=== PATIENT | male | born 1990 | race Hispanic/Latino ===

== ENCOUNTER 2019-07-08 12:37 | Emergency (ER) | payer OTHER ==
[2019-07-08 13:40] LABS: #Basophils 0.1 thou/uL (0.0-0.2); #Eosinphils 0.2 thou/uL (0.0-0.7); #Lymphocytes 3.1 thou/uL (1.20-3.40); #Monocytes 0.7 thou/uL (0.11-0.59); #Neutrophils 5.4 thou/uL (1.40-6.50); %Basophils 1.5 % (0.0-1.0); %Eosinophils 2.3 % (0.0-10.0); %Lymphocytes 32.8 % (21.0-51.0); %Neutrophils 56.3 % (42.0-75.0); Hemoglobin 16.3 g/dL (14.0-18.0); Mean Corpuscular Hemoglobin 27.1 pg (27.0-31.0); Mean Corpuscular Volume 82.1 fL (78.0-98.0); Mean Platelet Volume 7.3 fL (7.4-10.4); Platelet Count 341 thou/uL (130-400); RBC Distribution Width 12.7 % (11.5-14.5); Red Blood Cell (RBC) Count 6.04 mill/uL (4.70-6.10); White Blood Cell (WBC) Count 9.6 thou/uL (4.8-10.8)
[2019-07-08 14:19] LABS: ALT (SGPT) 109 U/L (8-55); AST (SGOT) 62 U/L (5-34); Albumin 4.6 g/dL (3.5-5.0); Alkaline Phosphatase 106 U/L (40-150); Anion Gap 18 mmol/L (10-20); BUN (Urea Nitrogen) 16 mg/dL (8.9-20.6); Bilirubin, Total 0.5 mg/dL (0.2-1.2); Calc. Creatinine Clearance 0 mL/min (70-130); Calcium 10.3 mg/dL (7.8-10.44); Carbon Dioxide 21 mmol/L (22-29); Chloride 103 mmol/L (98-107); Estimated GFR-MDRD 77; Globulin 3.2 g/dL (2.4-3.5); Glucose 132 mg/dL (70-105); Lipase 42 U/L (8-78); Potassium 3.8 mmol/L (3.5-5.1); Protein, Total 7.8 g/dL (6.0-8.3); Sodium 138 mmol/L (136-145)
--- NOTE | 2019-07-08 15:18 | ULT ---
EXAM: US Gallbladder RUQ PROVIDED CLINICAL HISTORY: Abdominal pain COMPARISON: None FINDINGS: The partially visualized pancreas appears normal. The liver appears enlarged, measuring approximately 19.6 cm in craniocaudal dimension at the right hepatic lobe. There is a coarsened and echogenic appearance to the hepatic parenchyma compatible with fatty infiltration. No evidence for mass or intr ahepatic ductal dilatation. The common duct is not dilated. The gallbladder is contracted with question of a small stone. There is no wall thickening or perichol ecystic fluid evident. The right kidney demonstrates no evidence for hydronephrosis or mass. IMPRESSION: 1. Hepatomegaly and fatty infiltration of the liver. 2. Question small gallstone without evidence for acute findings related to the gallbladder.
[2019-07-08] MEDS ORDERED: Meclizine HCl 25 MG TAB ONE (15:26)
[2019-07-08 16:34] LABS: Bacteria/HPF None Seen HPF (None Seen); Bilirubin Negative (Negative); Blood, Urine Negative (Negative); Clarity Extra Turbid (Clear); Glucose, Urine (Dipstick) Normal (Negative); Leukocyte Negative Leu/uL (Negative); Mucous/LPF Rare LPF (<2+); Nitrite Negative (Negative); Protein, Urine (Dipstick) 30 mg/dL (Neg-Trace); RBC/HPF 0-3 HPF (0-3); Urobilinogen Normal mg/dL (Less than 2); WBC/HPF 0-3 HPF (0-3)
[2019-07-08 16:44] LABS: Sperm/HPF 1+ HPF (None Seen)
[2019-07-08] MEDS ORDERED: Morphine 4 MG/ML VIAL ONE (16:46)
[2019-07-08] MEDS ORDERED: Ondansetron PF 4 MG/2 ML Vial ONE (16:46)
[2019-07-08 16:48] LABS: Squamous Epithelial 0-3 HPF (0-3)
--- NOTE | 2019-07-08 16:49 | RAD ---
TWO VIEW CHEST: 07/08/19 INDICATION: Cough. FINDINGS: Lungs are clear. No effusion or pneumothorax. Cardiac silhouette is normal in size. Osseous structure s are intact. IMPRESSION: No focal consolidation. POS: [facility]
== END 2019-07-08 17:00 | disposition home or self-care (01) ==
LOC: ERS 12:37
DX: K43.9 Ventral hernia without obstruction or gangrene (principal); R11.10 Vomiting, unspecified; R42 Dizziness and giddiness
CPT/HCPCS: 36415; 71046; 76705; 80053; 81003; 81015; 82550; 83690; 85025; 93005; 96374; 96375; J2270; J2405; J8597